=== PATIENT | female | born 1990 | race Two or more races ===

== ENCOUNTER 2016-07-13 09:39 | Outpatient (CLI) | payer MEDICAID ==
[2016-07-13 10:07] VITALS: BMI 27.1
== END 2016-07-13 12:28 | disposition home or self-care (01) ==
LOC: FBCOUT 09:39 → FBC 09:40 → FBCOUT 12:28
PROVIDERS: ATTEND Obstetrics & Gynecology
DX: O47.9 False labor, unspecified (principal); Z3A.00 Weeks of gestation of pregnancy not specified
CPT/HCPCS: 59025; 81002; G0463

== ENCOUNTER 2016-07-14 01:44 | Inpatient (IN) | payer MEDICAID ==
[2016-07-14 02:09] VITALS: BMI 27.4
[2016-07-14] MEDS ORDERED: MORPHINE SULFATE 10 MG/ML SYRINGE IM ONE (04:36)
[2016-07-14] MEDS ORDERED: PROMETHAZINE HCL 25 MG/ML VIAL IM ONE (04:36)
[2016-07-14] MEDS ORDERED: OXYTOCIN IN LR 500 ML IV ONE ×2 (06:18→06:30)
[2016-07-14] MEDS ORDERED: OXYTOCIN 10 UNITS/ML VIAL IM ONE (06:18)
[2016-07-14] MEDS ORDERED: LACTATED RINGERS 1,000 ML IV PRN ×2 (06:18→10:14)
[2016-07-14] MEDS ORDERED: LIDOCAINE 1% (PRES FREE) 30 ML VIAL ONE (06:29)
[2016-07-14] MEDS ORDERED: IV START KIT ONE (06:29)
[2016-07-14] MEDS ORDERED: LIDOCAINE Viscous 2% 15 ML UDCUP ONE (06:29)
[2016-07-14] MEDS ORDERED: OXYTOCIN 10 UNITS/ML VIAL ONE (06:29)
[2016-07-14] MEDS ORDERED: MINERAL OIL 25 ML BOT ONE (06:29)
[2016-07-14] MEDS ORDERED: LACTATED RINGERS 1,000 ML ONE (06:29)
[2016-07-14] MEDS ORDERED: PUMP TUBING ONE (06:30)
[2016-07-14] MEDS: FENTANYL 100 MCG/2 ML VIAL IV PRN ×2 (06:55→08:36)
[2016-07-14 07:24] LABS: HEMATOCRIT 35.7 % (37.0-47.0); HEMOGLOBIN 12.3 gm/l (12.0-16.0); MEAN CELL VOLUME 90.4 fl (81.0-99.0); MEAN CORPUSCULAR HEMOGLOBIN 31.1 pg (27.0-31.0); MEAN CORPUSCULAR HGB CONC 34.5 g/dl (33.0-37.0)
--- NOTE | 2016-07-14 08:56 | PCMAN ---
OB Admission Note - History : 1 Term: 0 : 0 Abortions (S&E): 0 Livin EDC:: 07/08/16 Gestational Age (weeks): 40 Days (#/7): 6 Admit Cervical Dilation:: 7 Admit Cervical Effacement (%):: 90 Admit Station:: -2 Admit Presentaton:: vertex Membrane Status: Ruptured Rupture (Date): 07/14/16 Rupture (Time): 07:30 Membranes Comment:: light meconium Labor Onset (Date): 07/14/16 Labor Onset (Time): 01:00 Contractions: Yes Contraction Frequency:: 2.5-4 Heart Rate:: 130 Status:: mod variability, early decelerations noted EFW:: 3500 Summary of Course:: Pt followed by Dr. Araiza Pituitary microadenoma - last prolactin was 136 (02/2016), s/p eye exam - Labs Blood Type: O (+) positive Rubella Status: Immune GBS Status: Negative - Physical Exam General: Acute Distress (very uncomfortable with contractions) Psych/Mental Status: Mood/Affect Appropriate Abdomen: Other (efw 3500g), No Tenderness, No Distention Genitourinary: Other (exam upon eval /-2, vtx, memb AROM - meconium noted) - Additional Comments 26yo , admitted in labor pt is progressing well, now 9.5cm since admission cephalic, membranes AROM for light meconium pt uncomfortable with contractions; did not want epidural, had IV pain meds, with fentanyl expectant management
[2016-07-14] MEDS ORDERED: MINERAL OIL 25 ML BOT TP ONE (09:15)
--- NOTE | 2016-07-14 09:51 | PCMDEL ---
Delivery Note - Delivery Gender: Female Presentation: Cephalic Position: OA Umbilical Cord: 3 Vessel Delayed Cord Clamping:: < 1 min Placenta:: Delivered intact, meconium stained EBL:: 200cc Perineum:: 2nd degree perineal Suture:: 3-O Vicryl Comments:: Baby delivered to CRISTO. Shoulders then delivered easily. Bulb suction applied to mouth and naries. Baby to abdomen. Delayed cord clamping 1 min with milking. Cord then clamped and cut. Placenta delivered complete with 3VC. 2nd degree laceration repaired with 3-O Vicryl. Baby Female delivered in stable condition.
[2016-07-14] MEDS ORDERED: SENNOSIDES 8.6 MG TABLET PO PRN (10:14)
[2016-07-14] MEDS ORDERED: OXYCODONE/ACETAMINOPHEN 5/325 MG TABLET PO PRN (10:14)
[2016-07-14] MEDS ORDERED: DOCUSATE SODIUM 100 MG CAPSULE PO PRN (10:14)
[2016-07-14] MEDS ORDERED: MAGNESIUM HYDROXIDE 30 ML UDCUP PO PRN (10:14)
[2016-07-14] MEDS ORDERED: LANOLIN 50 APPLIC/7G TUBE TP PRN (10:14)
[2016-07-14] MEDS ORDERED: CALCIUM CARBONATE 500 MG TAB.CHEW PO PRN (10:14)
[2016-07-14] MEDS ORDERED: BENZOCAINE/MENTHOL 60 APPLIC/BOT TP PRN (10:14)
[2016-07-14] MEDS: IBUPROFEN 800 MG TABLET PO PRN (21:08)
[2016-07-15] MEDS ORDERED: FLU VACC 2016-17 (36MO-64Y)/PF 60 MCG/0.5 ML SYRINGE IM V ONE (06:25)
[2016-07-15 06:51] LABS: HEMATOCRIT 29.2 % (37.0-47.0); HEMOGLOBIN 9.8 gm/l (12.0-16.0)
--- NOTE | 2016-07-15 07:01 | PDOC44 ---
- Subjective Day: 1 (offers no complaints) Reports Flatus, Reports Pain Tolerable, Reports , Reports Lochia Light, Reports Tolerating Regular Diet, Denies Nausea, Denies Vomiting, Denies Fever - Objective Temp Pulse Resp BP Pulse Ox 97.1 F 80 18 110/57 07/15/16 03:00 07/15/16 03:00 07/15/16 03:00 07/15/16 03:00 Lab Results 07/15/16 07/14/16 06:45 06:50 WBC 19.4 H RBC 3.95 L Hgb 9.8 L D 12.3 Hct 29.2 L 35.7 L Plt Count 250 07/14/16 06:50 MCH 31.1 H Current Medications Generic Name Dose Route Start Last Admin Trade Name Freq PRN Reason Stop Dose Admin Benzocaine/Menthol 1 applic 07/14/16 10:14 07/14/16 11:56 Dermoplast TP 1 bot PRN PRN Administration Patient Comfort Calcium Carbonate/Glycine 500 - 1,000 mg 07/14/16 10:14 Tums PO BID PRN Indigestion Docusate Sodium 100 mg 07/14/16 10:14 Colace PO DAILY PRN Comfort Emollient Ointment 1 applic 07/14/16 10:14 07/14/16 11:56 [id number] TP 1 tube PRN PRN Administration sore nipples Ibuprofen 800 mg 07/14/16 10:14 07/14/16 21:08 Motrin PO 800 mg Q6H PRN Administration Pain (Mild) Magnesium Hydroxide 30 ml 07/14/16 10:14 Milk Of Magnesia PO BEDTIME PRN Constipation Oxycodone/Acetaminophen 1 - 2 tab 07/14/16 10:14 Percocet 5/325 PO Q4H PRN Pain (Moderate) Senna 17.2 mg 07/14/16 10:14 Senokot PO BEDTIME PRN Comfort - Physical Exam General: Afebrile, No Acute Distress Psych/Mental Status: Mood/Affect Appropriate, Judgment/Insight Intact, Bonding Well Breast: Soft, Skin intact, Nipples Intact, No Tenderness, No Erythema, No Engorged Fundus: Firm, Midline, Below Umbilicus, Other (nontender) Genitourinary: Other (voiding without difficulty) Lochia: Light Extremities: No Tenderness - Problems:Assessment/Plan (1) Anemia, Status: Acute Disposition: Stable, Anticipate DC to Home (iron supplimentation ordered)
[2016-07-15] MEDS: FERROUS SULFATE (65 Fe) 325 MG TABLET PO SCH (09:00)
[2016-07-15] MEDS: IBUPROFEN 800 MG TABLET PO PRN ×2 (14:05→19:55)
[2016-07-16] MEDS: IBUPROFEN 800 MG TABLET PO PRN ×3 (02:35→14:53)
[2016-07-16] MEDS: FERROUS SULFATE (65 Fe) 325 MG TABLET PO SCH ×2 (07:45→15:38)
[2016-07-16 07:55] VITALS: BP 111/60
--- NOTE | 2016-07-16 09:47 | PDOC36 ---
Provider Note Note: ob note: patient advised to continue bromocriptine and have office visit in one week.
== END 2016-07-16 15:05 | disposition home or self-care (01) | DRG 775 ==
LOC: FBC 01:44 → FBCOUT 01:44 → FBC 06:20
PROVIDERS: ADMIT Obstetrics & Gynecology; ATTEND Obstetrics & Gynecology
PROC: 0KQM0ZZ Repair Perineum Muscle, Open Approach (ICD-10-PCS; principal; 2016-07-14)
PROC: 10E0XZZ Delivery of Products of Conception, External Approach (ICD-10-PCS; 2016-07-14)
PROC: 10907ZC Drainage of Amniotic Fluid, Therapeutic from Products of Conception, Via Natural or Artificial Opening (ICD-10-PCS; 2016-07-14)
DX: O70.1 Second degree perineal laceration during delivery (principal); Z37.0 Single live birth; O77.0 Labor and delivery complicated by meconium in amniotic fluid; O76 Abnormality in fetal heart rate and rhythm complicating labor and delivery; Z3A.40 40 weeks gestation of pregnancy

== ENCOUNTER 2016-07-20 13:54 | Outpatient (CLI) | payer MEDICAID | END 2016-07-20 13:55 | disposition home or self-care (01) | LOC: BABIESSH 13:54 | PROVIDERS: ATTEND Obstetrics & Gynecology | DX: Z39.1 Encounter for care and examination of lactating mother (principal) ==